=== PATIENT | female | born 1960 | race American Indian/Alaskan Native ===

== ENCOUNTER 2020-05-29 18:10 | Emergency (ER) | payer BC ==
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
[2020-05-29 22:24] VITALS: BP 154/100
== END 2020-05-29 21:40 | disposition left against medical advice (07) ==
LOC: ED 18:10
DX: M54.5 Low back pain (principal); M54.2 Cervicalgia; Z53.21 Procedure and treatment not carried out due to patient leaving prior to being seen by health care provider; V49.49XA Driver injured in collision with other motor vehicles in traffic accident, initial encounter; Y93.89 Activity, other specified; Y92.488 Other paved roadways as the place of occurrence of the external cause; Y99.8 Other external cause status